=== PATIENT | female | born 1950 | race Caucasian/White ===

== ENCOUNTER 2021-11-20 08:36 | Day surgery (SDC) | payer MEDICARE, BC, SELFPAY ==
[2021-11-20] VITALS (30 sets, daily range): BP systolic 85–138; BP diastolic 46–87; PULSE 43–76; RESP 13–18; TEMP 35.8–36.6; O2SAT 91–100; BMI 40.0
[2021-11-20] MEDS: ACETAMINOPHEN 500 MG TABLET 1000 MG PO ×2 (09:25→17:42)
[2021-11-20] MEDS: OXYCODONE (CR) 10 MG TAB.ER.12H PO (09:25)
[2021-11-20] MEDS: CELECOXIB 200 MG CAPSULE PO ×2 (09:25→20:49)
[2021-11-20] MEDS: SODIUM CHLORIDE 0.9 % (FLUSH) 10 ML SYRINGE IVF (09:35)
[2021-11-20] MEDS: LACTATED RINGERS 1000 ML 1,000 ML 100 ML IV ×2 (09:35→11:57)
--- NOTE | 2021-11-20 10:02 | SUR.PREOP ---
TIME?OUT:?1003 PT/RN/MDA?VERIFICATION?OF?SURGICAL?SITE,?PROCEDURE,?AND?CONSENT OBTAINED?PRIOR?TO?INVASIVE?PROCEDURE.
[2021-11-20] MEDS: fentaNYL 100 MCG/2 ML inj IVP (10:03)
[2021-11-20] MEDS: MIDAZOLAM HCL 1 MG/ML inj IVP (10:03)
--- NOTE | 2021-11-20 10:12 | W.PM.NB ---
Nerve Block Nerve Block Time Seen by Provider: 10:04 Date Seen: 11/20/21 Type of block requested by surgeon for post-operative analgesia: adductor canal Side: right Time out performed: Yes Verification of patient name: Yes Verification of date of : Yes Site marking: site marked Name of person performing procedure: Smith Mckeon Continuous monitoring Was continuous monitoring of O2 sat, B/P, manager cardiac cath, recorded every 15 minutes?: Yes Procedure Checklist: sterile prep, needles and gloves Ultrasound guided. Images saved: Yes Medications given in 5ml increments after negative aspiration: Ropivicaine %: 0.5 mL: 20 Needle gauge: 20 Decadron (mg): 10 Precedex (mcg): 25 Patient tolerated procedure well: Yes Block Charges Block Charge (with Pro Fee): Femoral Nerve Use of Ultrasound Machine for Block: Yes- US Guidance/pain block
--- NOTE | 2021-11-20 10:16 | W.PM.NB ---
Nerve Block Nerve Block Time Seen by Provider: 11:06 Date Seen: 11/20/21 Type of block requested by surgeon for post-operative analgesia: geniculars Side: right Time out performed: Yes Verification of patient name: Yes Verification of date of : Yes Site marking: site marked Name of person performing procedure: Smith Mckeon Continuous monitoring Was continuous monitoring of O2 sat, B/P, loan documents closer, recorded every 15 minutes?: Yes Procedure Checklist: sterile prep, needles and gloves Ultrasound guided. Images saved: Yes Medications given in 5ml increments after negative aspiration: Ropivicaine %: 0.5 mL: 10 Needle gauge: 25 Patient tolerated procedure well: Yes Block Charges Block Charge (with Pro Fee): Genicular Nerve Block Use of Ultrasound Machine for Block: No
[2021-11-20] MEDS: CEFAZOLIN 2 GM in 0.9 % SODIUM CHLORIDE Mini-bag 100 ML IVPB ×2 (11:10→17:44)
[2021-11-20] MEDS: TRANEXAMIC ACID 100 MG/ML INJ 1000 MG IV (11:13)
--- NOTE | 2021-11-20 11:28 | CRLHL7_ITS ---
For Patients: As a result of the Cures Act, medical imaging exams and procedure reports are released immediately into your electronic medical record. You may view this report before your referring provider. If you have questions, please contact your health care provider. Indication: POST OP TKA Technique: Two views right knee Findings/Impression: Hardware from a right total knee arthroplasty is in satisfactory position. Bone alignment is normal. No sign of acute fracture. Postop changes are within normal limits. Dictated by Marciano Cruz MD @ 11/20/2021 2:00:15 PM (Electronically Signed)
--- NOTE | 2021-11-20 12:50 | P.ORPRC_ITS ---
Procedure Note Date of procedure: 11/20/21 Procedure: PREOPERATIVE DIAGNOSIS: 1. Right knee osteoarthritis, primary, severe POSTOPERATIVE DIAGNOSIS: 1. Right knee osteoarthritis, primary, severe PROCEDURE: 1. Right total knee arthroplasty SURGEON: Zackary Anguiano MD. SOCIAL MEDIA SENIOR ASSOCIATE: Saravanan BENOIT - Of note, a skilled circulation assistant was critical for this case to aid in patient positioning, tissue retraction, limb manipulation/positioning, and closure. ANESTHESIA: Spinal anesthetic IMPLANTS: DePuy J&J all cemented TKA - Attune PS femur size 6 narrow, size 4 tibia, 5 mm poly spacer, 35 mm patella TOURNIQUET: 80 minutes at 300 torr EBL: 50 ml COMPLICATIONS: None evident INDICATIONS: The patient is a pleasant 70-year-old female who has experienced severe right knee pain and difficulty bearing weight. Workup included x-rays which revealed severe osteoarthrosis in the knee. Given the deformity, the dysfunction, and the pain, as well as the failure of nonoperative management, recommendation was made for surgery. FINDINGS: Full-thickness chondral loss lateral compartment broadly. Degenerative lateral meniscus tearing with absent posterior horn. Significant chondromalacia patellofemoral compartment and to a lesser degree medial compartment as well. Large osteophytes encountered throughout the knee. Large effusion as well. DESCRIPTION OF PROCEDURE: Following a thorough discussion of risks, benefits, and alternatives consent was obtained and the right knee was marked. The patient was brought to the operating room and placed supine on the operating table. Induction of anesthesia was undertaken. 2 g IV Ancef and 1 g tranexamic acid was administered within 1 hr of incision preoperatively. Proper time-out was performed identifying proper patient, site, procedure. The operative extremity was prepped and draped in the appropriate sterile fashion using ChloraPrep after the patient was positioned supine with all bony prominences well padded. A longitudinal, anterior, midline skin incision was made starting approximately 3cm proximal to the superior pole of the patella and advanced distal to the tibial tubercle. A median parapatellar arthrotomy was created. A medial subperiosteal sleeve was created with knife, canas elevator and curved osteotome. The retropatellar fatpad was resected and the synovium in the suprapatellar pouch excised to visualize the anterior femoral cortex. Femoral preparation was performed via an intramedullary guide. Step drill allowed access into the femoral canal. The distal cutting guide was placed with 6 ? of valgus and 11 mm cut on the distal femur due to flexion contracture. Femur was sized using a posterior referencing guide in 3? of external rotation. This found have a best fit with the sizing noted above. The 4 in 1 cutting block was then placed, and the distal femur shaped accordingly. The box cut was then created and the trial implant inserted to confirm appropriate fit. We turned our attention to the proximal tibia. Extramedullary guide was utilized for cutting with the goal of being 90 degree cut from the mechanical axis of the tibia in the varus/valgus plane utilizing tibial crest as the primary alignment. Initially a 3 mm resection was performed from the medial tibial plateau. Ultimately, balancing was achieved in both flexion and extension in both varus and valgus. The knee was able to achieve full extension as well comfortably. The patella was initially measured and found have a thickness of 22 mm. It was resected back to approximately 14 mm. It was sized to be a best fit with as noted above. This was drilled, trial placed. All trials were placed and found to have an excellent stability and balance. At this stage, trial implants were removed, the knee was thoroughly irrigated with normal saline, and the cement was mixed. After irrigation, the knee was thoroughly dried, and cement placed, with the real tibial and femoral implants placed along with the patella. Trial poly spacer was placed and confirmed to have excellent range of motion and full extension, and the real poly spacer opened and inserted. All extra cement was removed, and a 3 min Betadine soak performed. Finally, a final irrigation round with normal saline was performed. Closure performed with 0 Vicryl and #0 Stratafix for the quad tendon/retinaculum. 2-0 Vicryl for the subcutaneous and 4-0 Stratafix for subcuticular closure. Dressings were applied and the patient was awoken from anesthesia after the tourniquet deflated and transferred the PACU in stable condition. A skilled circulation assistant was critical for this case to aid in patient positioning, tissue retraction, bone exposure, limb manipulation/positioning, patient safety, and closure. PLAN: 1. Weight bear as tolerated operative extremity. 2. 23 hr perioperative antibiotics. 3. Ice. 4. PT/OT consults for ambulation assistance/mobility education. 5. Social work consult for discharge planning. 6. DVT prophylaxis with at SCDs, Zach Hose, and aspirin twice daily.
--- NOTE | 2021-11-20 13:25 | W.ANESCHARGE ---
Anesthesia Charges Start Date/Time Anesthesia Start Date: 11/20/21 Anesthesia Start Time: 11:06 Stop Date/Time Anesthesia Stop Date: 11/20/21 Anesthesia Stop Time: 13:26 Summary Emergency: No Extremes of Age: Over 69-CPT 18767
[2021-11-20] MEDS: LACTATED RINGERS 1000 ML 1,000 ML 35 ML IV (13:38)
[2021-11-20] MEDS: HYDROmorphone 0.5 mg/0.5 ml inj IVP (14:29)
[2021-11-20] MEDS: OXYCODONE 5 MG TABLET PO ×2 (15:38→20:09)
--- NOTE | 2021-11-20 17:14 | SUR.OPER ---
PATIENT QUESTIONS ANSWERED SATISFACTORILY PREOPERATIVELY.? PATIENT BROUGHT TO OR #2 PER CART.? Patient positioned supine on OR #2 bed.?The perioperative?team supported arms bilaterally on arm boards.? Final approval of positioning by surgeon.?
--- NOTE | 2021-11-20 18:54 | P.IMCN_ITS ---
Date of Consult Consult date: 11/20/21 Requesting Physician: Orthopedics Consult Narrative Reason for consult: Postop management Narrative: HOSPITALIST CONSULT Hospital Day # 1 Post Op Day # 0 Status post right total knee arthroplasty Spinal anesthetic 50 mL EBL No complications The hospital medicine team was asked by Orthopedic surgery team to manage the patient's type 2 diabetes, hypertension, sleep apnea. There have been no perioperative questions or concerns. I met and examined the patient in her hospital room the evening of surgery. I updated the [facility] histories and Medications and Allergies in the Expanse tabs REVIEW OF SYSTEMS: 12-point ROS completed with patient and negative unless otherwise stated in HPI or below. PHYSICAL EXAM: CODE STATUS: FULL CODE CONSTITUTIONAL: Conversive, good historian. A/O. Knows setting and context. VITAL SIGNS: see record. HEENT: Normocephalic, atraumatic. PERRL, EOMI, conjunctivae pink, no scleral icterus. Ears and nose externally normal. Pharynx normal. NECK: No JVD. No carotid bruit, no thyromegaly, no adenopathy. CHEST: Clear to auscultation bilaterally HEART: No harsh murmurs. S1/S2. ABDOMEN: Flat, soft, nontender. Normal bowel sounds. Moderately obese. EXTREMITIES: No edema. MUSCULOSKELETAL: Right knee with surgical dressing in place. No obvious hematoma or bleeding. Neurovascularly intact. NEURO: Cranial nerves intact. Normal affect. No gross deficits. Speech intelligible. SKIN: No rashes, petechiae, concerning changes PSYCHIATRIC: Euthymic. INVESTIGATIONS: EMR Reviewed DISPOSITION: MedSurg Recovery; Discharge tomorrow DVT: Agree with ortho plan for DVT prevention GI: PO intake PFSH PFS Medical History Diabetes Hypertension Sleep apnea Surgical History H/O parathyroidectomy H/O tubal ligation S/P total knee arthroplasty Family History Father Lung cancer Mother Stroke Social History Smoking Status: Never smoker Do you use any of these nicotine containing products: None How often do you have a drink containing alcohol: monthly or less Alcohol type: beer, wine and hard liquor How many standard drinks containing alcohol do you have on a typical day: 1 or 2 How often do you have six or more drinks on one occasion: Never AUDIT-C Alcohol total score: 1 Non-prescribed substance use: denies use and over the counter (eg: immodium) Non-prescribed substance use details: occ ibuprofen, tylenol Caffeine: Yes (coffee, 2-3 cups/morning) Meds Home Medications and Allergies Home Medications Medication Instructions Recorded Confirmed Type L. acidophilus,casei,rhamnosus 50 3 cap PO DAILY 11/20/21 11/20/21 History billion cell capsule,delayed release acetaminophen 500 mg capsule 500 mg PO Q6H PRN 11/20/21 11/20/21 History calcium carbonate 600 mg-vitamin 1 tab PO DAILY 11/20/21 11/20/21 History D3 10 mcg (400 unit) tablet (Calcium 600 + D(3)) cholecalciferol (vitamin D3) 50 2,000 unit PO DAILY 11/20/21 11/20/21 History mcg (2,000 unit) capsule lisinopril 20 mg tablet 20 mg PO DAILY 11/20/21 11/20/21 History metformin 500 mg tablet,extended 500 mg PO BIDWMEAL 11/20/21 11/20/21 History release 24 hr Allergies Allergy/AdvReac Type Severity Reaction Status Date / Time diclofenac AdvReac Mild Upset Verified 11/20/21 08:57 [From Arthrotec 50] stomach misoprostol AdvReac Mild Upset Verified 11/20/21 08:57 [From Arthrotec 50] stomach penicillin V AdvReac Mild Hives Verified 11/20/21 08:56 Cephalosporins AdvReac Unknown Verified 11/20/21 08:57 Exam Const: Vital Signs, click to edit/add: Vital Signs - 24 hr 11/20/21 09:39 11/20/21 09:52 11/20/21 10:05 Temperature 97.4 F L Pulse Rate 51 L 56 L 56 L Pulse Rate [Right Radial] Respiratory Rate 16 16 14 Blood Pressure 134/67 124/67 136/59 L Blood Pressure [Le ft Arm] Pulse Oximetry 96 98 99 Oxygen Delivery Me thod Room Air Nasal Cannula Nasal Cannula Oxygen Flow Rate 3 3 11/20/21 10:10 09/07/22 10:15 11/20/21 10:20 Temperature Pulse Rate 46 L 47 L 46 L Pulse Rate [Right Radial] Respiratory Rate 14 14 14 Blood Pressure 121/57 L 99/52 L 93/56 L Blood Pressure [Le ft Arm] Pulse Oximetry 91 96 96 Oxygen Delivery Me thod Nasal Cannula Nasal Cannula Nasal Cannula Oxygen Flow Rate 3 3 3 11/20/21 10:25 11/20/21 10:30 11/20/21 13:20 Temperature 98 F Pulse Rate 44 L 43 L 63 Pulse Rate [Right Radial] Respiratory Rate 14 14 14 Blood Pressure 108/53 L 102/48 L 85/62 L Blood Pressure [Le ft Arm] Pulse Oximetry 96 96 98 Oxygen Delivery Me thod Nasal Cannula Nasal Cannula OxyMask Oxygen Flow Rate 3 3 6 11/20/21 13:25 11/20/21 14:05 11/20/21 13:30 Temperature 98 F 96.9 F L 98 F Pulse Rate 62 55 L 60 Pulse Rate [Right Radial] Respiratory Rate 16 16 15 Blood Pressure 89/56 L 114/46 L 97/59 L Blood Pressure [Le ft Arm] Pulse Oximetry 100 93 97 Oxygen Delivery Me thod OxyMask Room Air OxyMask Oxygen Flow Rate 6 0 6 11/20/21 13:35 11/20/21 13:40 11/20/21 13:45 Temperature 98 F 98 F 98 F Pulse Rate 56 L 54 L 57 L Pulse Rate [Right Radial] Respiratory Rate 14 13 13 Blood Pressure 99/58 L 113/63 112/52 L Blood Pressure [Le ft Arm] Pulse Oximetry 94 94 94 Oxygen Delivery Me thod OxyMask Room Air Room Air Oxygen Flow Rate 6 0 0 11/20/21 13:50 11/20/21 13:55 11/20/21 14:00 Temperature 98 F 98 F 98 F Pulse Rate 55 L 56 L 55 L Pulse Rate [Right Radial] Respiratory Rate 16 14 15 Blood Pressure 116/62 120/63 121/61 Blood Pressure [Le ft Arm] Pulse Oximetry 96 94 92 Oxygen Delivery Me thod Room Air Room Air Room Air Oxygen Flow Rate 0 0 0 11/20/21 14:46 11/20/21 14:10 11/20/21 14:10 Temperature 96.4 F L 96.4 F L 96.4 F L Pulse Rate 53 L Pulse Rate [Right Radial] Respiratory Rate 14 14 16 Blood Pressure Blood Pressure [Le ft Arm] 138/78 106/82 106/82 Pulse Oximetry 93 93 Oxygen Delivery Me thod Room Air Room Air Room Air Oxygen Flow Rate 3 0 11/20/21 14:30 11/20/21 14:30 11/20/21 15:01 Temperature 96.4 F L Pulse Rate Pulse Rate [Right Radial] 55 L 54 L 64 Respiratory Rate 16 16 14 Blood Pressure Blood Pressure [Le ft Arm] 120/78 110/85 138/80 Pulse Oximetry 92 92 94 Oxygen Delivery Me thod Room Air Room Air Room Air Oxygen Flow Rate 0 0 11/20/21 15:31 11/20/21 16:02 11/20/21 16:33 Temperature 96.6 F L Pulse Rate Pulse Rate [Right Radial] 58 L 63 60 Respiratory Rate 14 16 16 Blood Pressure Blood Pressure [Le ft Arm] 103/87 114/62 112/60 Pulse Oximetry 94 93 96 Oxygen Delivery Me thod Room Air Room Air Room Air Oxygen Flow Rate 0 11/20/21 17:00 11/20/21 18:00 Temperature Pulse Rate Pulse Rate [Right Radial] 76 71 Respiratory Rate 16 18 Blood Pressure Blood Pressure [Le ft Arm] 131/74 127/60 Pulse Oximetry 95 94 Oxygen Delivery Me thod Room Air Room Air Oxygen Flow Rate Assessment and Plan Assessment and plan (1) S/P total knee arthroplasty: Problem comment: 11/20/2021, right knee Dr. Zackary Juan Status: Acute Assessment and Plan: Hospital medicine team is happy to follow this patient through to discharge. I have ordered Accu-Cheks and sliding scale insulin as well as her metformin. I am holding her lisinopril for the morning. This can certainly be ordered if she is hypertensive. Her other medications to include tumeric, multivitamin, calcium and vitamin-D are all being held until she gets home. I expect a routine perioperative course. I agree with aspirin b.i.d. for prophylaxis. (2) Diabetes: Problem comment: Metformin monotherapy Status: Acute Assessment and Plan: Bedside glucose checks, sliding scale insulin coverage if needed. Continue metformin when eating. (3) Hypertension: Status: Acute Assessment and Plan: Well managed. I am holding the lisinopril for the morning. (4) Sleep apnea: Status: Acute Assessment and Plan: Patient brought her home CPAP unit.
--- NOTE | 2021-11-20 18:54 | PC.NURSE ---
End of shift. pt has been very pleasant. she came back from pacu @ 1412. pain right knee has been 2-09/22 she got IV Dilaudid 1 time and is now on po oxycodone. pain is well controlled. she is up with 1 assist walker and GB. she is a fall risk and alarms are on. dressing is C/D/I. cyro cuff to the knee. was here and is loving and caring. teds are on. pulled down a little for comfort. plexi are on. IV is patent. she is eating, drinking and voiding. she takes metformin and does not check BS at home. she has sleep apnea and has her CPAP here. IS to 2500.
[2021-11-20] MEDS: METFORMIN ER 500 MG PO ×2 (20:19→20:50)
[2021-11-20] MEDS: ASPIRIN 81 MG TABLET EC PO (20:49)
[2021-11-20] MEDS: SENNOSIDES 1 TAB TABLET 2 TAB PO (20:49)
[2021-11-21] MEDS: ACETAMINOPHEN 500 MG TABLET 1000 MG PO ×2 (01:13→06:24)
[2021-11-21] MEDS: CEFAZOLIN 2 GM in 0.9 % SODIUM CHLORIDE Mini-bag 100 ML IVPB ×2 (01:14→08:57)
[2021-11-21 03:00] VITALS: BP 125/54; PULSE 50; RESP 18; TEMP 36.6; O2SAT 95
--- NOTE | 2021-11-21 05:43 | PC.NURSE ---
Alert and oriented x4. Vitals stable. Afebrile.Taking oxycodone for pain. Using cryo on that right knee. Up and ambulating using a walker around the room. voiding fine; IV Fluids stopped. Blood sugars stable; insulin administered as per orders
[2021-11-21 07:27] LABS: Basophils Percent Auto 0.1 % (0.0-3.0); Hematocrit 35.6 % (33.0-51.0); Hemoglobin* 11.8 gm/dL (12.0-16.0); Immature Granulocytes Abs Auto 0.05 K/uL (0.00-0.30); Lymphocytes Percent Auto 6.4 % (20-44); Mean Corpuscular HGB Conc 33 gm/dL (32-36); Mean Corpuscular Hemoglobin 30 pg (26-34); Mean Corpuscular Volume 91 fL (80-100); Monocytes Percent Auto 5.9 % (0.0-11.0); Neutrophils Percent Auto 87.2 % (42.0-72.0); Platelet Count* 204 K/uL (140-440); Red Blood Count 3.93 m/uL (4.00-5.20)
[2021-11-21 07:31] LABS: Slide Review Reflex No
[2021-11-21 07:45] LABS: Potassium* 5.3 mmol/L (3.6-5.1); Sodium* 137 mmol/L (135-149)
[2021-11-21 07:48] LABS: Creatinine* 0.6 mg/dL (0.5-1.5); Est. Creatinine Clearance* 40.81; Estimated Glomerular Filt Rate 96 ml/min
[2021-11-21 07:49] LABS: Blood Urea Nitrogen* 17 mg/dL (7-30)
[2021-11-21 08:01] VITALS: BP 128/97; PULSE 64; RESP 16; TEMP 36.7; O2SAT 97
[2021-11-21 08:04] VITALS: PULSE 64; RESP 16
[2021-11-21] MEDS: OXYCODONE 5 MG TABLET PO ×2 (08:56→11:54)
[2021-11-21] MEDS: SENNOSIDES 1 TAB TABLET 2 TAB PO (08:56)
[2021-11-21] MEDS: CELECOXIB 200 MG CAPSULE PO (08:56)
[2021-11-21] MEDS: ASPIRIN 81 MG TABLET EC PO (08:57)
--- NOTE | 2021-11-21 10:17 | PM.ORPN ---
Subjective Subjective Date Seen: 11/21/21 Principal diagnosis: Status postop day 1, right total knee arthroplasty Interval history: Patient reports doing well. No acute events over night. Pain managed with scheduled /PRN medications and ice. DVT prophylaxis 81 mg aspirin by mouth twice daily, bilateral knee high Zach stockings, and SCDs. Denies fevers, chills, aches, N/V, CP, SOB/MEDRANO, tachycardia, or lightheadedness. Reports that her stomach is gurgling. Ortho Exam Narrative Exam Narrative: -Patient appears comfortable in recliner eating breakfast; no apparent acute distress -Alert and oriented times 3 -Operative knee swollen; soft tissues supple; no obvious erythema. Ecchymosis minimal. Warmth appropriate -Surgical dressing clean, dry, intact; no obvious drainage, no erythematous streaking peripheral to the bandage -Operative calf soft; no significant swelling, edema, tenderness, erythema, discoloration, warmth, or palpable cords -2+ DP/PT pulses, intact dermatomes and myotomes distally (5/5 strength) Const Vital Signs, click to edit/add: Vital Signs - 24 hr 11/20/21 10:20 11/20/21 10:25 11/20/21 10:30 Temperature Pulse Rate 46 L 44 L 43 L Pulse Rate [Right Radial] Respiratory Rate 14 14 14 Blood Pressure 93/56 L 108/53 L 102/48 L Blood Pressure [Left Arm] Pulse Oximetry 96 96 96 Oxygen Delivery Method Nasal Cannula Nasal Cannula Nasal Cannula Oxygen Flow Rate 3 3 3 11/20/21 13:20 11/20/21 13:25 11/20/21 14:05 Temperature 98 F 98 F 96.9 F L Pulse Rate 63 62 55 L Pulse Rate [Right Radial] Respiratory Rate 14 16 16 Blood Pressure 85/62 L 89/56 L 114/46 L Blood Pressure [Left Arm] Pulse Oximetry 98 100 93 Oxygen Delivery Method OxyMask OxyMask Room Air Oxygen Flow Rate 6 6 0 11/20/21 13:30 11/20/21 13:35 11/20/21 13:40 Temperature 98 F 98 F 98 F Pulse Rate 60 56 L 54 L Pulse Rate [Right Radial] Respiratory Rate 15 14 13 Blood Pressure 97/59 L 99/58 L 113/63 Blood Pressure [Left Arm] Pulse Oximetry 97 94 94 Oxygen Delivery Method OxyMask OxyMask Room Air Oxygen Flow Rate 6 6 0 11/20/21 13:45 11/20/21 13:50 11/20/21 13:55 Temperature 98 F 98 F 98 F Pulse Rate 57 L 55 L 56 L Pulse Rate [Right Radial] Respiratory Rate 13 16 14 Blood Pressure 112/52 L 116/62 120/63 Blood Pressure [Left Arm] Pulse Oximetry 94 96 94 Oxygen Delivery Method Room Air Room Air Room Air Oxygen Flow Rate 0 0 0 11/20/21 14:00 11/20/21 14:46 11/20/21 14:10 Temperature 98 F 96.4 F L 96.4 F L Pulse Rate 55 L 53 L Pulse Rate [Right Radial] Respiratory Rate 15 14 14 Blood Pressure 121/61 Blood Pressure [Left Arm] 138/78 106/82 Pulse Oximetry 92 93 Oxygen Delivery Method Room Air Room Air Room Air Oxygen Flow Rate 0 3 11/20/21 14:10 11/20/21 14:30 11/20/21 14:30 Temperature 96.4 F L 96.4 F L Pulse Rate Pulse Rate [Right Radial] 55 L 54 L Respiratory Rate 16 16 16 Blood Pressure Blood Pressure [Left Arm] 106/82 120/78 110/85 Pulse Oximetry 93 92 92 Oxygen Delivery Method Room Air Room Air Room Air Oxygen Flow Rate 0 0 11/20/21 15:01 11/20/21 15:31 11/20/21 16:02 Temperature 96.6 F L Pulse Rate Pulse Rate [Right Radial] 64 58 L 63 Respiratory Rate 14 14 16 Blood Pressure Blood Pressure [Left Arm] 138/80 103/87 114/62 Pulse Oximetry 94 94 93 Oxygen Delivery Method Room Air Room Air Room Air Oxygen Flow Rate 0 0 11/20/21 16:33 11/20/21 17:00 11/20/21 18:00 Temperature Pulse Rate Pulse Rate [Right Radial] 60 76 71 Respiratory Rate 16 16 18 Blood Pressure Blood Pressure [Left Arm] 112/60 131/74 127/60 Pulse Oximetry 96 95 94 Oxygen Delivery Method Room Air Room Air Room Air Oxygen Flow Rate 11/20/21 19:37 11/20/21 20:00 11/20/21 23:00 Temperature 96.6 F L 96.6 F L Pulse Rate Pulse Rate [Right Radial] 60 Respiratory Rate 18 18 Blood Pressure Blood Pressure [Left Arm] 124/84 Pulse Oximetry 94 Oxygen Delivery Method Room Air Oxygen Flow Rate 0 11/20/21 23:00 11/21/21 03:00 11/21/21 08:01 Temperature 96.9 F L 98 F 98.1 F Pulse Rate Pulse Rate [Right Radial] 60 50 L 64 Respiratory Rate 18 18 16 Blood Pressure Blood Pressure [Left Arm] 112/51 L 125/54 L 128/97 H Pulse Oximetry 92 95 97 Oxygen Delivery Method Room Air Room Air Room Air Oxygen Flow Rate 0 11/21/21 08:04 Temperature Pulse Rate Pulse Rate [Right Radial] 64 Respiratory Rate 16 Blood Pressure Blood Pressure [Left Arm] Pulse Oximetry Oxygen Delivery Method Oxygen Flow Rate Assessment and Plan Assessment and plan (1) S/P total knee arthroplasty: Problem details: 11/20/2021, right knee Dr. Zackary Anguiano POD 1 right total knee arthroplasty Status: Acute (2) Diabetes: Problem details: Metformin monotherapy Status: Acute (3) Hypertension: Status: Acute (4) Sleep apnea: Status: Acute Plan - Complete 23 hour perioperative antibiotics. - PT/OT consult for education and assistance. - Social work consult for discharge planning - Prescribed analgesics as needed - DVT prophylaxis: 81 mg aspirin by mouth twice daily, bilateral knee high Zach Hose stockings and SCDs - Anticipation is for discharge to home with 11/21/2021 if the patient remains medically stable, pain is controlled, and they are safe with mobilization.
[2021-11-21 10:18] VITALS: BP 114/46; PULSE 53; RESP 16; TEMP 36.7
--- NOTE | 2021-11-21 10:20 | P.DS_ITS ---
DS: Providers Provider Date Seen: 11/21/21 Date of admission: med/surg recovery 11/20/2021 Primary care physician: Not a Local Provider Consults: 11/20/21 14:13 Consult to Occupational Therapy [CONS] Routine Comment: Reason(s) for OT Consult:: ADLs Prior to Discharge Any Restrictions?:: See Comment Comment: See nursing activity order for any restrictions. Consult to Physical Therapy [CONS] Routine Comment: Ambulate in the piña today. Reason(s) for PT Consult:: TKA TX Protocol POD#0 Any Restrictions?:: See Comment Comment: See nursing activity order for any restrictions. Consult to Physician [CONS] Routine Comment: Consulting Provider: Hospitalists Has provider been notified: No Consult to [facility] Registered Nurse Rn [CONS] Routine Comment: Reason for Consult:: Discharge Planning Needs Attending Physician on discharge: Zackary Anguiano MD Date of Discharge: 11/21/21 DS: Diagnosis Discharge Diagnosis (1) S/P total knee arthroplasty: Status: Acute Problem details: Right knee osteoarthritis primary, severe status post right knee DS: Summary Hospital Course Hospital Course: The patient has a history of right knee osteoarthritis, primary, severe. After appropriate preoperative evaluation, the patient underwent right total knee arthroplasty. Postoperatively given anticoagulation for deep vein thrombosis prophylaxis. They progressed to PT/OT and were felt ready and prepared for discharged to home with appropriate pain medication and anticoagulation medications. Status at Discharge Functional status at discharge: uses cane/walker Overall status at discharge: patient is not back to baseline Time Spent with Patient Time attestation: Total time spent providing and/or coordinating discharge services: Time spent: Less than 30 minutes Exam Const: Vital Signs, click to edit/add: Vital Signs - 24 hr 11/20/21 10:25 11/20/21 10:30 11/20/21 13:20 Temperature 98 F Pulse Rate 44 L 43 L 63 Pulse Rate [Right Radial] Respiratory Rate 14 14 14 Blood Pressure 108/53 L 102/48 L 85/62 L Blood Pressure [Le ft Arm] Pulse Oximetry 96 96 98 Oxygen Delivery Me thod Nasal Cannula Nasal Cannula OxyMask Oxygen Flow Rate 3 3 6 11/20/21 13:25 11/20/21 14:05 11/20/21 13:30 Temperature 98 F 96.9 F L 98 F Pulse Rate 62 55 L 60 Pulse Rate [Right Radial] Respiratory Rate 16 16 15 Blood Pressure 89/56 L 114/46 L 97/59 L Blood Pressure [Le ft Arm] Pulse Oximetry 100 93 97 Oxygen Delivery Me thod OxyMask Room Air OxyMask Oxygen Flow Rate 6 0 6 11/20/21 13:35 11/20/21 13:40 11/20/21 13:45 Temperature 98 F 98 F 98 F Pulse Rate 56 L 54 L 57 L Pulse Rate [Right Radial] Respiratory Rate 14 13 13 Blood Pressure 99/58 L 113/63 112/52 L Blood Pressure [Le ft Arm] Pulse Oximetry 94 94 94 Oxygen Delivery Me thod OxyMask Room Air Room Air Oxygen Flow Rate 6 0 0 11/20/21 13:50 11/20/21 13:55 11/20/21 14:00 Temperature 98 F 98 F 98 F Pulse Rate 55 L 56 L 55 L Pulse Rate [Right Radial] Respiratory Rate 16 14 15 Blood Pressure 116/62 120/63 121/61 Blood Pressure [Le ft Arm] Pulse Oximetry 96 94 92 Oxygen Delivery Me thod Room Air Room Air Room Air Oxygen Flow Rate 0 0 0 11/20/21 14:46 11/20/21 14:10 11/20/21 14:10 Temperature 96.4 F L 96.4 F L 96.4 F L Pulse Rate 53 L Pulse Rate [Right Radial] Respiratory Rate 14 14 16 Blood Pressure Blood Pressure [Le ft Arm] 138/78 106/82 106/82 Pulse Oximetry 93 93 Oxygen Delivery Me thod Room Air Room Air Room Air Oxygen Flow Rate 3 0 11/20/21 14:30 11/20/21 14:30 11/20/21 15:01 Temperature 96.4 F L Pulse Rate Pulse Rate [Right Radial] 55 L 54 L 64 Respiratory Rate 16 16 14 Blood Pressure Blood Pressure [Le ft Arm] 120/78 110/85 138/80 Pulse Oximetry 92 92 94 Oxygen Delivery Me thod Room Air Room Air Room Air Oxygen Flow Rate 0 0 11/20/21 15:31 11/20/21 16:02 11/20/21 16:33 Temperature 96.6 F L Pulse Rate Pulse Rate [Right Radial] 58 L 63 60 Respiratory Rate 14 16 16 Blood Pressure Blood Pressure [Le ft Arm] 103/87 114/62 112/60 Pulse Oximetry 94 93 96 Oxygen Delivery Me thod Room Air Room Air Room Air Oxygen Flow Rate 0 11/20/21 17:00 11/20/21 18:00 11/20/21 19:37 Temperature 96.6 F L Pulse Rate Pulse Rate [Right Radial] 76 71 Respiratory Rate 16 18 Blood Pressure Blood Pressure [Le ft Arm] 131/74 127/60 Pulse Oximetry 95 94 Oxygen Delivery Me thod Room Air Room Air Oxygen Flow Rate 11/20/21 20:00 11/20/21 23:00 11/20/21 23:00 Temperature 96.6 F L 96.9 F L Pulse Rate Pulse Rate [Right Radial] 60 60 Respiratory Rate 18 18 18 Blood Pressure Blood Pressure [Le ft Arm] 124/84 112/51 L Pulse Oximetry 94 92 Oxygen Delivery Me thod Room Air Room Air Oxygen Flow Rate 0 11/21/21 03:00 11/21/21 08:01 11/21/21 08:04 Temperature 98 F 98.1 F Pulse Rate Pulse Rate [Right Radial] 50 L 64 64 Respiratory Rate 18 16 16 Blood Pressure Blood Pressure [Le ft Arm] 125/54 L 128/97 H Pulse Oximetry 95 97 Oxygen Delivery Me thod Room Air Room Air Oxygen Flow Rate 0 11/21/21 10:18 Temperature 98.1 F Pulse Rate 53 L Pulse Rate [Right Radial] Respiratory Rate 16 Blood Pressure 114/46 L Blood Pressure [Le ft Arm] Pulse Oximetry Oxygen Delivery Me thod Oxygen Flow Rate DS: Data Data Completed and Pending Labs on day of discharge: Labs from last 24 hours 11/21/21 11/21/21 11/21/21 10:15 05:56 05:56 WBC 13.20 H RBC 3.93 L Hgb 11.8 L Hct 35.6 MCV 91 MCH 30 MCHC 33 RDW Coeff of Sae 13.0 Plt Count 204 Neut % (Auto) 87.2 H Lymph % (Auto) 6.4 L [place] % (Auto) 5.9 Eos % (Auto) 0.0 Baso % (Auto) 0.1 Neut # (Auto) 11.50 H Lymph # (Auto) 0.80 L [place] # (Auto) 0.80 Eos # (Auto) 0.00 Baso # (Auto) 0.00 Abs Immat Gran (auto) 0.05 Sodium 137 Potassium Pending 5.3 H BUN 17 Creatinine 0.6 Estimated Creat Clear 40.81 Estimated GFR 96 Discharge Plan Discharge Disposition: Home, Self-Care Discharging Surgeon: Zackary Anguiano Follow-Up Appointment: 1 week postop with PA Prescriptions: New celecoxib 200 mg capsule 200 mg PO BID Qty: 60 0RF sennosides-docusate sodium [Senna-S] 8.6-50 mg tablet 1 - 4 tab-cap PO BID PRN (Reason: constipation) Qty: 60 0RF Rx Instructions: Hold medication if experiencing loose stools. aspirin 81 mg tablet,delayed release (DR/EC) 81 mg PO BID Qty: 60 0RF Rx Instructions: Medication to help prevent blood clots postoperatively; take TWICE daily. oxycodone 5 mg tablet 2.5 - 5 mg PO Q4-6H MDD 6 PRN (Reason: pain) Qty: 42 0RF Rx Instructions: Take as needed for postop pain: 2.5mg mild pain, 5mg moderate-severe pain; wean as tolerated. acetaminophen 500 mg capsule 500 - 1,000 mg PO Q6H MDD 4000mg PRNQty: 100 0RF Continued metformin 500 mg tablet extended release 24 hr 500 mg PO BIDWMEAL Label Comments: TAKE ONE TABLET BY MOUTH TWICE A DAY WITH MEALS lisinopril 20 mg tablet 20 mg PO DAILY Label Comments: TAKE ONE TABLET BY MOUTH EVERY DAY calcium carbonate-vitamin D3 [Calcium 600 + D(3)] 600 mg-10 mcg (400 unit) tablet 1 tab PO DAILY cholecalciferol (vitamin D3) 50 mcg (2,000 unit) capsule 2,000 unit PO DAILY L. acidophilus,casei,rhamnosus 50 billion cell capsule,delayed release(DR/EC) 3 cap PO DAILY Discontinued acetaminophen 500 mg capsule 500 mg PO Q6H PRN Activity Level: Activity as Tolerated, Weight Bearing as Tolerated, Use Cane and Use Walker Activity Detail: Wound: ?Do not remove original dressing; we will remove this at first postop visit in 1 week. Only remove dressing if integrity is in question. ?No immersing wound in water; showering okay; light scrub with your hand and body soap, rinse, dab dry ?Sutures are under the skin, will dissolve; allow surgical glue to come off naturally; do not scrub the wound or apply ointments/lotions ?Call our office with any redness that streaks, excessive drainage from the wound, or wound gapping. Ice/Elevate: ?Ice as needed for swelling and discomfort (cryocuff or ice pack); elevate frequently above the heart [place] socks: ?Wear for 1 month, remove for 1 hour 3 times per day ?These are frustrating to take on/off, but are important for blood clot prevention for 1 month after surgery Blood Clot Prevention (DVT): ?Medication: 81 mg aspirin by mouth twice daily Driving: ?Do not drive while taking narcotic pain medication ?Anticipate 4-6 weeks no driving if operative leg is driving leg Dental: ?No elective dental work for 6 months post-op. If there is an urgent/emergent dental need, contact our office for an antibiotic prescription. Smoking/Alcohol: ?Do not smoke; do no drink alcohol especially when taking postoperative oral narcotic medication Seek Care from you Primary Care Provider if you experience the following issues in the postoperative phase and beyond: ?Bacterial infections such as: pneumonia, bacterial skin infection (cellulitis), UTI, high fever, chills unrelated to the operative body part - call your primary care physician urgently for treatment in hopes to protect your health and the metal implant. Referrals: ?PT, OT per patient preference - evaluate treat total right knee arthroplasty protocol (the training, ROM, ADLs, knee-high [place] socks) Follow up: ?Ortho surgeon follow-up in 6 weeks; repeat radiographs three views right knee ?KEYLA visit in 1 week *If there are any acute concerns regarding your surgery, please call our orthopedic clinic ([phone]) Discharge Diet: Regular Patient Instructions: Acetaminophen (By mouth), Aspirin (By mouth), Oxycodone, Rapid Release (By mouth), Celecoxib (By mouth), Senna (By mouth), Surgical Site Infections (DC), Knee Replacement (DC) Forms: Work/Release Restrictions Follow-up: [facility] [Other] - 11/22/21 2:00 pm Provider,Not a Local [Primary Care Provider] - (Set up appointment as needed) Dariel Zaldivar PA-C [Physician Director Blood Bank] - 11/28/21 9:50 am Discharge Orders: Discharge Order (Routine); Ordered 11/21/21 Ordered By: Zandra Jennings
[2021-11-21 10:33] LABS: Potassium* 4.6 mmol/L (3.6-5.1)
[2021-11-21 11:05] VITALS: BP 145/76; PULSE 58; RESP 16; TEMP 36.7; O2SAT 96
--- NOTE | 2021-11-21 11:30 | P.DS_ITS ---
DS: Providers Provider Date Seen: 11/21/21 Primary care physician: Not a Local Provider Admitting Clinician: Zackary Anguiano MD Consults: PT, OT, Hospitalist team Attending Physician on discharge: Zackary Anguiano MD Date of Discharge: 11/21/21 DS: Diagnosis Discharge Diagnosis (1) S/P total knee arthroplasty: Status: Acute Problem details: Right knee osteoarthritis primary, severe status post right knee (2) Diabetes: Status: Acute Problem details: Metformin monotherapy (3) Hypertension: Status: Acute (4) Sleep apnea: Status: Acute DS: Summary Hospital Course Hospital Course: Yvette was admitted to the hospital for a right TKA. Hospitalist team was consulted given the above-mentioned comorbidities. She did well postoperatively and comorbidities remained stable. No changes made to her home medications upon discharge. Prophylaxis and pain management per Orthopedic surgery team. Patient will be discharged home with routine follow-up with therapies, orthopedic surgery, and PCP. Status at Discharge Functional status at discharge: uses cane/walker Time Spent with Patient Time attestation: Total time spent providing and/or coordinating discharge services: Time spent: Less than 30 minutes Exam Narrative: Exam Narrative: Gen: A/O, NAD CV: RRR, no concerning murmurs, rubs, or gallops R: Lungs clear without concerning wheezing Ext: wwp, no concerning edema Skin: No concerning skin lesions or rashes Neuro: Nonfocal, ambulates well with walker during PT Const: Vital Signs, click to edit/add: Vital Signs - 24 hr 11/20/21 13:20 11/20/21 13:25 11/20/21 14:05 Temperature 98 F 98 F 96.9 F L Pulse Rate 63 62 55 L Pulse Rate [Right Radial] Respiratory Rate 14 16 16 Blood Pressure 85/62 L 89/56 L 114/46 L Blood Pressure [Le ft Arm] Pulse Oximetry 98 100 93 Oxygen Delivery Me thod OxyMask OxyMask Room Air Oxygen Flow Rate 6 6 0 11/20/21 13:30 11/20/21 13:35 11/20/21 13:40 Temperature 98 F 98 F 98 F Pulse Rate 60 56 L 54 L Pulse Rate [Right Radial] Respiratory Rate 15 14 13 Blood Pressure 97/59 L 99/58 L 113/63 Blood Pressure [Le ft Arm] Pulse Oximetry 97 94 94 Oxygen Delivery Me thod OxyMask OxyMask Room Air Oxygen Flow Rate 6 6 0 11/20/21 13:45 11/20/21 13:50 11/20/21 13:55 Temperature 98 F 98 F 98 F Pulse Rate 57 L 55 L 56 L Pulse Rate [Right Radial] Respiratory Rate 13 16 14 Blood Pressure 112/52 L 116/62 120/63 Blood Pressure [Le ft Arm] Pulse Oximetry 94 96 94 Oxygen Delivery Me thod Room Air Room Air Room Air Oxygen Flow Rate 0 0 0 11/20/21 14:00 11/20/21 14:46 11/20/21 14:10 Temperature 98 F 96.4 F L 96.4 F L Pulse Rate 55 L 53 L Pulse Rate [Right Radial] Respiratory Rate 15 14 14 Blood Pressure 121/61 Blood Pressure [Le ft Arm] 138/78 106/82 Pulse Oximetry 92 93 Oxygen Delivery Me thod Room Air Room Air Room Air Oxygen Flow Rate 0 3 11/20/21 14:10 11/20/21 14:30 11/20/21 14:30 Temperature 96.4 F L 96.4 F L Pulse Rate Pulse Rate [Right Radial] 55 L 54 L Respiratory Rate 16 16 16 Blood Pressure Blood Pressure [Le ft Arm] 106/82 120/78 110/85 Pulse Oximetry 93 92 92 Oxygen Delivery Me thod Room Air Room Air Room Air Oxygen Flow Rate 0 0 11/20/21 15:01 11/20/21 15:31 11/20/21 16:02 Temperature 96.6 F L Pulse Rate Pulse Rate [Right Radial] 64 58 L 63 Respiratory Rate 14 14 16 Blood Pressure Blood Pressure [Le ft Arm] 138/80 103/87 114/62 Pulse Oximetry 94 94 93 Oxygen Delivery Me thod Room Air Room Air Room Air Oxygen Flow Rate 0 0 11/20/21 16:33 11/20/21 17:00 11/20/21 18:00 Temperature Pulse Rate Pulse Rate [Right Radial] 60 76 71 Respiratory Rate 16 16 18 Blood Pressure Blood Pressure [Le ft Arm] 112/60 131/74 127/60 Pulse Oximetry 96 95 94 Oxygen Delivery Me thod Room Air Room Air Room Air Oxygen Flow Rate 11/20/21 19:37 11/20/21 20:00 11/20/21 23:00 Temperature 96.6 F L 96.6 F L Pulse Rate Pulse Rate [Right Radial] 60 Respiratory Rate 18 18 Blood Pressure Blood Pressure [Le ft Arm] 124/84 Pulse Oximetry 94 Oxygen Delivery Me thod Room Air Oxygen Flow Rate 0 11/20/21 23:00 11/21/21 03:00 11/21/21 08:01 Temperature 96.9 F L 98 F 98.1 F Pulse Rate Pulse Rate [Right Radial] 60 50 L 64 Respiratory Rate 18 18 16 Blood Pressure Blood Pressure [Le ft Arm] 112/51 L 125/54 L 128/97 H Pulse Oximetry 92 95 97 Oxygen Delivery Me thod Room Air Room Air Room Air Oxygen Flow Rate 0 11/21/21 08:04 11/21/21 10:18 Temperature 98.1 F Pulse Rate 53 L Pulse Rate [Right Radial] 64 Respiratory Rate 16 16 Blood Pressure 114/46 L Blood Pressure [Le ft Arm] Pulse Oximetry Oxygen Delivery Me thod Oxygen Flow Rate DS: Data Data Completed and Pending Labs on day of discharge: Labs from last 24 hours 11/21/21 11/21/21 11/21/21 10:15 05:56 05:56 WBC 13.20 H RBC 3.93 L Hgb 11.8 L Hct 35.6 MCV 91 MCH 30 MCHC 33 RDW Coeff of Sae 13.0 Plt Count 204 Neut % (Auto) 87.2 H Lymph % (Auto) 6.4 L [place] % (Auto) 5.9 Eos % (Auto) 0.0 Baso % (Auto) 0.1 Neut # (Auto) 11.50 H Lymph # (Auto) 0.80 L [place] # (Auto) 0.80 Eos # (Auto) 0.00 Baso # (Auto) 0.00 Abs Immat Gran (auto) 0.05 Sodium 137 Potassium 4.6 5.3 H BUN 17 Creatinine 0.6 Estimated Creat Clear 40.81 Estimated GFR 96 Discharge Plan Discharge Disposition: Home, Self-Care Discharging Surgeon: Zackary Anguiano Follow-Up Appointment: 1 week postop with RICK Prescriptions: New celecoxib 200 mg capsule 200 mg PO BID Qty: 60 0RF sennosides-docusate sodium [Senna-S] 8.6-50 mg tablet 1 - 4 tab-cap PO BID PRN (Reason: constipation) Qty: 60 0RF Rx Instructions: Hold medication if experiencing loose stools. aspirin 81 mg tablet,delayed release (DR/EC) 81 mg PO BID Qty: 60 0RF Rx Instructions: Medication to help prevent blood clots postoperatively; take TWICE daily. oxycodone 5 mg tablet 2.5 - 5 mg PO Q4-6H MDD 6 PRN (Reason: pain) Qty: 42 0RF Rx Instructions: Take as needed for postop pain: 2.5mg mild pain, 5mg moderate-severe pain; wean as tolerated. acetaminophen 500 mg capsule 500 - 1,000 mg PO Q6H MDD 4000mg PRNQty: 100 0RF Continued metformin 500 mg tablet extended release 24 hr 500 mg PO BIDWMEAL Label Comments: TAKE ONE TABLET BY MOUTH TWICE A DAY WITH MEALS lisinopril 20 mg tablet 20 mg PO DAILY Label Comments: TAKE ONE TABLET BY MOUTH EVERY DAY calcium carbonate-vitamin D3 [Calcium 600 + D(3)] 600 mg-10 mcg (400 unit) tablet 1 tab PO DAILY cholecalciferol (vitamin D3) 50 mcg (2,000 unit) capsule 2,000 unit PO DAILY L. acidophilus,casei,rhamnosus 50 billion cell capsule,delayed release(DR/EC) 3 cap PO DAILY Discontinued acetaminophen 500 mg capsule 500 mg PO Q6H PRN Activity Level: Activity as Tolerated, Weight Bearing as Tolerated, Use Cane and Use Walker Activity Detail: Wound: ?Do not remove original dressing; we will remove this at first postop visit in 1 week. Only remove dressing if integrity is in question. ?No immersing wound in water; showering okay; light scrub with your hand and body soap, rinse, dab dry ?Sutures are under the skin, will dissolve; allow surgical glue to come off naturally; do not scrub the wound or apply ointments/lotions ?Call our office with any redness that streaks, excessive drainage from the wound, or wound gapping. Ice/Elevate: ?Ice as needed for swelling and discomfort (cryocuff or ice pack); elevate frequently above the heart [place] socks: ?Wear for 1 month, remove for 1 hour 3 times per day ?These are frustrating to take on/off, but are important for blood clot prevention for 1 month after surgery Blood Clot Prevention (DVT): ?Medication: 81 mg aspirin by mouth twice daily Driving: ?Do not drive while taking narcotic pain medication ?Anticipate 4-6 weeks no driving if operative leg is driving leg Dental: ?No elective dental work for 6 months post-op. If there is an urgent/emergent dental need, contact our office for an antibiotic prescription. Smoking/Alcohol: ?Do not smoke; do no drink alcohol especially when taking postoperative oral narcotic medication Seek Care from you Primary Care Provider if you experience the following issues in the postoperative phase and beyond: ?Bacterial infections such as: pneumonia, bacterial skin infection (cellulitis), UTI, high fever, chills unrelated to the operative body part - call your primary care physician urgently for treatment in hopes to protect your health and the metal implant. Referrals: ?PT, OT per patient preference - evaluate treat total right knee arthroplasty protocol (the training, ROM, ADLs, knee-high [place] socks) Follow up: ?Ortho surgeon follow-up in 6 weeks; repeat radiographs three views right knee ?KEYLA visit in 1 week *If there are any acute concerns regarding your surgery, please call our orthopedic clinic ([phone]) Discharge Diet: Regular Patient Instructions: Acetaminophen (By mouth), Aspirin (By mouth), Oxycodone, Rapid Release (By mouth), Celecoxib (By mouth), Senna (By mouth), Surgical Site Infections (DC), Knee Replacement (DC) Forms: Work/Release Restrictions Follow-up: [facility] [Other] - 11/22/21 2:00 pm Provider,Not a Local [Primary Care Provider] - (Set up appointment as needed) Dariel Zaldivar PA-C [Physician [facility] Consultant] - 11/28/21 9:50 am Discharge Orders: Discharge Order (Routine); Ordered 11/21/21 Ordered By: Zandra Jennings
--- NOTE | 2021-11-21 12:25 | PC.NURSE ---
discharge. ? pt is very pleasant. ? pain right knee has been 2-5? she got po oxycodone.? pain is well controlled.? she is up with 1 assist, walker and GB.? she is a fall risk and alarms are on. ? dressing is C/D/I. ? cyro cuff to the knee.? os here and he is still is loving and caring.? teds are on/off. PT and OT worked with her. ? plexi are on. ? SL is patent, and d/c intact. ? she is eating, drinking and voiding.? BS was 141.. ? she has sleep apnea and has her CPAP here.? IS to 2500. went over discharge packet with pt and . went over medications, appointments, instructions and education. pt went over and signed personal belong sheet. all belongings and paperwork sent with pt. cryo cuff sent with. pt got a w/c ride to her suv and was helped in to the SUV.
== END 2021-11-21 11:00 | disposition home or self-care (01) ==
LOC: OR 09:05 → MEDSURG 09:05
PROVIDERS: Family Medicine; Visit Provider Orthopaedic Surgery Sports Medicine
PROC: (CPT 27447; principal; 2021-11-20 10:15)
DX: M17.11 Unilateral primary osteoarthritis, right knee (principal); E11.9 Type 2 diabetes mellitus without complications; I10 Essential (primary) hypertension; G47.30 Sleep apnea, unspecified; Z79.84 Long term (current) use of oral hypoglycemic drugs
CPT/HCPCS: 27447; 01402; 36415; 64447; 64454; 73560; 76942; 82565; 82947; 84132; 84295; 84520; 85025; 97110; 97116; 97161; 97165; 99100; A9270; C1776; J0690; J1100; J1170; J2250; J2370; J2405; J2704; J3010; J7120

== ENCOUNTER 2022-01-28 13:00 | Outpatient (RCR) | payer MEDICARE, BC, SELFPAY ==
--- NOTE | 2021-11-04 14:33 | PT.OPEX ---
PT [facility] Outpatient Eval PT [facility] Outpatient Eval Start: 11/04/21 11:34 Freq: Status: Active Protocol: Document 11/04/21 11:35 ENM (Rec: 11/04/21 14:23 ENM [id number]) E-signed By Mitzy Bain, DPT Physical Therapy Outpatient Evaluation Insurance Information Recert Due Date 01/27/22 Insurance Name Medicare B Medical Diagnosis R TKA (DOS 11/20/2021) Treating Diagnosis right knee pain, decreased knee ROM, decreased proximal hip and knee strength, impaired gait Referring MD Anguiano Subjective Subjective Yvette presents for her pre-op R TKA appointment prior to surgery on 11/20/21 to be performed by . The right knee had been bothersome for years and it has more arthritis compared to the left knee. She doesn't really have pain often unless she is on her feet the whole day. Its mainly stiffness and discomfort. The most difficult thing is going down the stairs. Patient states that she was supposed to get her knee replaced about a year ago but then there was scheduling challenges. She has been doing pool aerobic classes which have been helpful. Her goal is to be able to walk further and keep up with the grandkids. See pre-op flowsheet for additional information about home set up. PMHx: diabetes, arthritis, osteoporosis, Pain Comments -04/25 Date of Surgery (If applicable) 11/20/21 Current Work Status Retired Objective Other/Pertinent Objective Knee ROM L 2-0-118 R 0-10-100 hip ROM WFL as seen per transfers strength: hip flexors L 4/5 R 4-/5 knee extensors: L 4/5 R 4-/5 good quad set B, able to perform SLR B with lagging knee extension on R compared to L gait/balance: Patient ambulating with RLE ER , valgus posture and significant ankle pronation palpation/joint mobility: no tenderness to palpation along bilateral knee joint and knee cap Other: calf + for tightness on the R HS 90/90 + for tightness behind the knee on the R Assessment Assessment/Impression Patient is a 70 year old female presenting for pre op visit prior to R TKA on 11/20/21 . Patient has difficulty with walking longer distance and performing stairs due to stiffness and discomfort in the right knee. Pains are minimal overall daily but increase with more activity. She has a good home set up with needed assistive devices. Her goal for after surgery is to be able to walk further and keep up with her grandkids . Upon assessment patient displays decreased knee ROM, decreased proximal hip strength and impaired gait mechanics. Patients knee is 10 degrees from straight and lacking 20 deg of knee flexion . Patient ambulates with R ankle pronation, knee valgus and R ER of LLE throughout gait cycle. Global RLE weakness compared to L. Patient will be seen again post operatively to reassess impairments that will be addressed with skilled care. Yvette would greatly benefit from skilled PT in order to progress strength, ROM and ambulation post operatively to perform all household duties and recreational activities without significant difficulty or discomfort. Primary Functional Limitations stairs, walking Plan of Care Rehabilitation Potential Good Physical Therapy Goals After pre-op visit: ? Patient will be independent with HEP ? Patient will verbalize knowledge of stair navigation and proper sequencing ? Patient will have knowledge on home adaptations and use of assistive devices post operatively ? Patient will have knowledge of edema management Coordination/Communication With Referral Source Treatment Plan/Direct Interventions Electrical Stimulation,Gait Training,Ice/Cold/ Vasopneumatic,Joint Mobilization,Manual Therapy, Neuromuscular Re-ed,Self-Care/ Home Management,Therapeutic Activities,Therapeutic Exercises Frequency/Duration 1x visit prior to surgery on . Patient scheduled to start outpatient PT s/p R TKA on 11/22/21. Has HEP to start with pre-operatively. Patient Will Be Discharged From Therapy Completion of LTG(s), Independent w/HEP Evaluation Billing Untimed Code Treatment Minutes 27 Complexity Low Certification Information Initial Certification Date 11/04/21 Ending Certification Date 01/27/22 Provider Signature Shows Agreement With POC & Medical Necessity Physician Comment/Change Comment or Changes Physician NPI Number #
--- NOTE | 2021-11-22 16:25 | PT.OPDNX ---
PT [facility] Daily Note [facility] Daily Note Start: 11/04/21 11:34 Freq: Status: Active Protocol: Document 11/22/21 12:45 ENM (Rec: 11/22/21 14:43 ENM [id number]) E-signed By Mitzy Bain DPT PT OP Daily Progress Note Visit Information Note Type Re-Evaluation Visit Number 2 Insurance Information Recert Due Date 01/27/22 Insurance Name Medicare B Medical Diagnosis R TKA (DOS 11/20/2021) Treating Diagnosis right knee pain, decreased knee ROM, decreased proximal quad strength, impaired gait, impaired balance Referring MD Anguiano Subjective Subjective Yvette presents post operatively after R TKA performed on by . Patient states that she is happy with how she has been able to get around at home. She has been walking within the house using the walker. No significant challenges with doing the steps. The quad exercises has been the most painful. Pains have been worse at night 5/10. She has been icing consistently. Bending of the knee is the hardest. She does require help lifting the leg at times. PMHx: diabetes, arthritis, osteoporosis Pain Comments at its best: 3/10 at its worse: 5/10 aggravating: bending the knee Home Exercise Home Exercise Comments pre op exercises: SLR, quad set, LAQ, SAQ, ankle pumps, HS iso, heel slide, knee extension stretch Objective Other/Pertinent Objective Knee ROM L 2-0-118 R 0-8-71 hip ROM WFL as seen per transfers strength: R LE fair quad set SLR needing mod A to perform gait/balance: Patient ambulation with step to gait pattern initially, slight ER of RLE, ankle pronation bilaterally with antalgic gait pattern using 2ww palpation/joint mobility: no tenderness to palpation along knee joint line or musculature swelling/observation: superior patella L 51 cm R 55 cm mid patella L 45 cm R 48 cm inf patella L 43 cm R 46.2 cm no bruising present at this time, bandaging present over incision Functional Test Performed & Score pre op LEFS: 57/80 Patient Instructed in Risks/Benefits Yes Therapeutic Exercise Therapeutic Exercise Minutes (minutes) 21 Therapeutic Exercise: To Restore -quad set with towel roll Functional Status under knee for comfort 10x5s holds -HS set -SLR with strap x10 -SAQ x10 with ModA from therapist to perform -heel slide with strap in supine -heel slide with slider in sitting *cues throughout for maintaining RLE internally rotated as patient tends to ER -Time spent answering patient and spouse questions as to icing and pain medication -Issued level H tubigrip to help with swelling Gait & Stair Training Gait Training/Stairs Minutes (minutes) 3 Gait & Stair Training Comments - Patient educated on quad contraction with ambulation. Able to implement x150' with 2WW, minimal discomfort throughout ambulation bout. Progressing to step through gait pattern Treatment Minutes Untimed Code Treatment Minutes 20 Timed Code Treatment Minutes 24 Total Treatment Time 44 Billing Units Therapeutic Exercise Units 2 Re-Evaluation Units 1 Assessment/Impression Assessment/Impression Patient returns to PT for evaluation after R TKA 11/20/21. Overall patient has been moving around well after surgery. Pains have been 3-5/ 10 on average. She has been able to navigate ambulation and transfers with use of 2WW. Primary difficulties at this time are bending the knee, lifting the leg and walking. Upon assessment patient displays decreased knee ROM, impaired gait, impaired transfers, decreased quad strength, impaired balance and swelling. Patient ambulates with an antalgic gait pattern initially step to mechanics. Knee ROM 0-8-71. Impairments consistent with s/p TKA. Patient would benefit from skilled PT to address impairments stated above in order to to perform all functional and recreational activities post operatively without significant difficulty or discomfort. Plan of Care Physical Therapy Goals In 4-5 weeks: 1. Patient will improve knee ROM to > 100 for improved ease of STS transfers 2. Patient will ambulate with improved mechanics and less than 3/10 knee pain with or without AD >150' for improved household/community mobility 3. Patient will perform >5 SLR with improved form and strength to improve supine<> sit transfer In 8-10 weeks, will be able to : 1. Patient will improve knee ROM to >120 in order to comfortably navigate stairs for household and community navigation 2. Patient will be able to walk up to 10 minutes without use of AD or report of increased knee pain 3. Patient will return to playing/caring for grandchildren with less than 2 /10 demonstrating improved activity tolerance Daily Plan of Care Continue per POC Daily Plan of Care Comments 1-2x for 6-7 weeks, 1x for 4 weeks Recertification Information Provider Signature Shows Agreement With POC & Medical Necessity Physician Comment/Change Comment or Changes Physician NPI Number #
== END 2022-02-07 15:31 | disposition home or self-care (01) ==
PROVIDERS: Visit Provider Orthopaedic Surgery Sports Medicine
DX: Z96.651 Presence of right artificial knee joint (principal); Z51.89 Encounter for other specified aftercare
CPT/HCPCS: 97110; 97116; 97140; 97161; 97164